=== PATIENT | female | born 1960 | race Caucasian/White ===

== ENCOUNTER 2023-12-22 07:00 | Emergency (ER) | payer MEDICARE, OTHER, SELFPAY ==
[2023-12-22 07:02] VITALS: BP 159/90
--- NOTE | 2023-12-22 07:24 | ED.GENMED ---
History of Present Illness
General
Chief Complaint: Back Pain
Source: patient
Exam Limitations: none
Time Seen by Provider: 12/22/23 07:12
History of Present Illness
History of Present Illness:
63-year-old female presents complaining of intermittent sharp stabbing pain to the left side of the lower back starting 2 days ago got better yesterday came back today. No associated nausea. Pain does not radiate down the leg or to the abdomen.
She is moving her bowels no associated urinary symptoms. No chest pain or shortness of breath. No prior history of kidney stones. She has significant surgical history to her back. She is a hic-zggjwbs-tixzdnset diabetic. No other
Phy Exam
Physical Exam
Physical Exam:
General: Uncomfortable appearing female no acute respiratory distress HEENT: Normocephalic atraumatic
Heart: Regular rate and rhythm no murmurs lungs: Clear no wheeze or rales
Abdomen: Soft nontender nondistended there is left-sided costovertebral angle tenderness
Musculoskeletal exam: No midline tenderness over the lumbar spine good range of motion all extremities
Course
Orders/Labs/Results
Orders:
Orders
12/22/23 07:23
CT Abd/pel Without Iv Or Oral Urgent
Comment:
Reason For Exam: left flank pain
Ketorolac [Toradol] 15 mg IV NOW STA
12/22/23 07:32
Complete Blood Count/With Diff Urgent
Urinalysis Reflex To Culture Urgent
Date Specimen was Collected: 12/22/23
Time Specimen was Collected: 07:26
Urine Microscopic Reflex Cult Urgent
12/22/23 08:02
Comprehensive Metabolic Panel Urgent
Abnormal Lab Results
12/22/23 12/22/23
07:32 08:02
Absolute Neuts (auto) 7.4 H 10^3/uL
(1.4-6.5)
Glucose 147 H mg/dl
(70-99)
Total Protein 6.2 L g/dl
(6.3-8.2)
Ur Occult Blood Reflex 4+ A
(Negative)
Urine RBC >100 A /HPF
(0-2)
Urine Bacteria (Reflex) Few A
(Negative)
12/22/23 07:32
12/22/23 08:02
Vital Signs
Initial and Last Documented VS:
Initial Vital Signs
Temp Pulse Resp BP Pulse Ox
99.1 F 99 16 159/90 98
12/22/23 07:02 12/22/23 07:02 12/22/23 07:02 12/22/23 07:02 12/22/23 07:02
Last Documented Vital Signs
Temp Pulse Resp BP Pulse Ox
99.1 F 88 17 149/62 98
12/22/23 07:02 12/22/23 08:00 12/22/23 08:00 12/22/23 08:00 12/22/23 08:00
MDM/Problems Addressed
Differential Diagnosis Includes:
Left flank pain. Consider renal colic versus musculoskeletal flank pain. There is no rash to suggest shingles.
Patient has jav-zbfmrxo-vphkfjmey diabetes. She has history of chronic back issues. Will check labs and urine. Toradol ordered for pain. CT pending
*Critical Care Note
Total Time (30-74mins, 75-104mins- exclusive of procedures): Not Applicable
Update Note
Update Note:
CT reviewed and demonstrates a 3 mm stone in the proximal left ureter with mild hydronephrosis. No infection in the urine on urinalysis labs otherwise within normal limits. Patient feeling significantly improved after Toradol. Will discharge home
with instruction to drink plenty of fluids. Will prescribe medicine for pain nausea and Flomax. Recommend urology follow-up and return precautions were given
ED Attending Note
-
Portions of this chart may have been created with voice recognition software.� Occasional wrong word or��sound alike� substitutions may have occurred due to the inherent limitations of voice recognition software.
Discharge Plan
Departure
Patient Disposition: Home (Routine Discharge)
Date of Disposition: 12/22/23
Time of Disposition: 09:06
Patient with high blood pressure during this ER visit?: No
Discharge Problem:
Kidney stone
Instructions: Kidney Stone, Adult ED
Prescriptions:
New
ondansetron 4 mg tablet,disintegrating
4 mg PO Q8H PRN (Reason: nausea and vomiting) Qty: 10 0RF
hydrocodone-acetaminophen 5-325 mg tablet
1 tab PO TID PRN (Reason: Pain) Qty: 10 0RF
tamsulosin [Flomax] 0.4 mg capsule
0.4 mg PO DAILY Qty: 14 0RF
Referrals:
Paradise Jefferson DO [Family Provider] -
Marck Christine MD [Active] -
Interventions
Interventions:
*Risk Screen - Suicide Last Done: 12/22/23 07:35
*General Assessment Last Done: 12/22/23 07:35
*Neglect/Abuse Screening Last Done: 12/22/23 07:35
*ED COVID-19 Vaccine History Last Done: 12/22/23 07:35
ED-Musculoskeletal Assessment Last Done: 12/22/23 07:35
Discharge Date and Time
Print Language: HAITIAN
[2023-12-22 07:31] VITALS: BMI 20.9
[2023-12-22] MEDS: TORADOL 15 MG IV (07:32)
[2023-12-22 07:41] LABS: % Basophils 0.4 % (0-2); % Eosinophils 1.2 % (0-6); % Immature Granulocytes 0.3 % (0-0.5); % Lymphocytes 20.8 % (20.5-51.1); % Monocytes 5.9 % (1.7-9.3); % Neutrophils 71.4 % (42.2-75.2); Absolute Eosinophils 0.1 10^3/uL (0-0.7); Absolute Lymphocytes 2.2 10^3/uL (1.2-3.4); Absolute Monocytes 0.6 10^3/uL (0.1-0.6); Absolute Neutrophils 7.4 10^3/uL (1.4-6.5); Hematocrit 41.8 % (37.0-47.0); Hemoglobin 14.4 g/dL (12.0-16.0); Mean Corp Hgb Conc. 34.4 g/dL (33.0-37.0); Mean Corpuscular Hgb 29.1 pg (27.0-31.0); Mean Corpuscular Volume 84.6 fL (81.0-99.0); Mean Platelet Volume 9.8 fL (7.4-10.4); Nucleated Red Blood Cells % 0 %; Platelet Count 246 10^3/uL (130-400); Red Blood Cell Count 4.94 10^6/uL (4.20-5.40); Red Cell Dist. Width 13.2 % (11.5-14.5); White Blood Cell Count 10.4 10^3/uL (4.8-10.8)
[2023-12-22 07:53] LABS: Urine Albumin Trace (Neg - Trace); Urine Bilirubin Negative (Negative); Urine Character Clear (Clear); Urine Color Yellow; Urine Glucose Negative (Negative); Urine Ketone Negative (Negative); Urine Leukocyte Negative (Negative); Urine Nitrite Negative (Negative); Urine Occult Blood 4+ (Negative); Urine Urobilinogen Negative (Neg - 1+)
[2023-12-22 08:00] VITALS: BP 149/62
[2023-12-22 08:08] LABS: Urine Bacteria Few (Negative); Urine Red Blood Cell >100 /HPF (0-2); Urine White Cell 0-2 /HPF (0-5)
[2023-12-22 08:34] LABS: ALT (SGPT) 29 U/L (0-35); AST (SGOT) 29 U/L (14-36); Alkaline Phosphatase 86 U/L (38-126); Blood Urea Nitrogen 16 mg/dl (7-17); Calcium 9.9 mg/dl (8.4-10.2); Carbon Dioxide 25 mmol/L (22-30); Chloride 105 mmol/L (98-107); Estimated Creatinine Clearance 81 ml/min; Glucose 147 mg/dl (70-99); Sodium 139 mmol/L (135-145); Total Bilirubin 0.3 mg/dl (0.2-1.3); Total Protein 6.2 g/dl (6.3-8.2); eGFR > 60.00
[2023-12-22 09:43] VITALS: BP 142/66
== END 2023-12-22 09:44 | disposition home or self-care (01) ==
LOC: EMR 07:00
PROVIDERS: Physician Assistant; EMERGENCY PHYSICIAN Emergency Medicine; FAMILY PHYSICIAN Internal Medicine
DX: N20.2 Calculus of kidney with calculus of ureter (principal); E11.9 Type 2 diabetes mellitus without complications
CPT/HCPCS: 99284; 96374; 74176; 80053; 81003; 81015; 85025

== ENCOUNTER → 2024-01-14 07:01 | Outpatient (REF) | payer MEDICARE, OTHER, SELFPAY | LOC: HWRAD 07:01 | PROVIDERS: ATTENDING PHYSICIAN Urology; FAMILY PHYSICIAN Internal Medicine | DX: N20.0 Calculus of kidney (principal) | CPT/HCPCS: 74018 ==

== ENCOUNTER 2024-01-30 06:21 | Day surgery (SDC) | payer MEDICARE, OTHER, SELFPAY ==
[2024-01-30] VITALS (10 sets, daily range): BP systolic 125–157; BP diastolic 65–84; BMI 20.4
[2024-01-30 12:37] LABS: Glucose - Point of Care 95 mg/dl (70-99)
[2024-01-30 14:29] LABS: Glucose - Point of Care 88 mg/dl (70-99)
[2024-01-30] MEDS: Pyridium 200 MG PO (17:13)
[2024-01-30] MEDS: TYLENOL 650 MG PO (18:22)
[2024-01-30] MEDS: ZOFRAN 4 MG IV (18:24)
[2024-02-04 11:28] LABS: Stone Analysis Mass 31 mg
== END 2024-01-30 18:34 | disposition home or self-care (01) ==
LOC: SDS 06:21
PROVIDERS: ATTENDING PHYSICIAN Urology
DX: N20.2 Calculus of kidney with calculus of ureter (principal)
CPT/HCPCS: 52356; 74018; 76000; 82365; 82962; 93005; A4300; C1758; C1769; C1894; C2617

== ENCOUNTER 2024-02-14 13:42 | Observation (INO) | payer MEDICARE, OTHER, SELFPAY ==
[2024-02-14] VITALS (12 sets, daily range): BP systolic 129–177; BP diastolic 67–98; PULSE 84
--- NOTE | 2024-02-14 08:17 | ED.GENMED ---
History of Present Illness
<Joana Prado MANAGER FRONT - Last Filed: 02/14/24 15:36>
General
Chief Complaint: Urinary Symptoms
Source: patient
Exam Limitations: none
Time Seen by Provider: 02/14/24 08:16
Nursing documentation reviewed up to this point in time: agreed with
History of Present Illness
History of Present Illness:
63-year-old female with history of sleep apnea on CPAP, HTN, HLD, GERD, NIDDM, anxiety, cystoscopy, right ureteroscopy, laser lithotripsy with stone extraction and right ureteral stent placed on 01/30/[address] Christine presents for rash,
nausea, poor appetite. States rash started 2 days ago on her back and has spread to shoulders, back of head, and today itching in chest, genital area and abdomen. Denies fever/chills. Has been nauseated and vomited once this a.m. Denies CP, SOB,
swelling in tongue or throat. Denies difficulty, burning, frequency of urination.
Took Benadryl 50 mg and Zofran at 5 a.m. with no relief.
Was on Macrobid BID 01/26 x 3 days. No other new exposures.
Past History
<Joana Prado MANAGER FRONT - Last Filed: 02/14/24 15:36>
Past History
ED Past Medical History: GERD, HTN, Hypercholesterolemia and NIDDM
ED Past Surgical History: Appendectomy, Cholecystectomy, Gynecological (hysterectomy), Orthopedic and Urological (stent R ureter 01/31/24)
Social History
Tobacco: Non-smoker
Personal:
Living: with family
Employment: Not employed
Review of Systems
<Joana Prado MANAGER FRONT - Last Filed: 02/14/24 15:36>
Review of Systems
Allergies reviewed?: Yes
All Other Systems: ROS reviewed and negative except as documented in HPI and ROS
Constitutional: Denies fever or chills
EENT: Denies sore throat or mouth swelling
Respiratory: Denies cough or trouble breathing
Cardiac: Denies chest pain
ABD/GI: Reports nausea, vomiting (vomited once this a.m.) and anorexia; Denies abdominal pain
: Denies dysuria, frequency, flank pain, difficulty voiding or urgency
Musculoskeletal: Reports no symptoms
Skin: Reports itching and rash
Neurological: Reports no symptoms
Phy Exam
<Joana Prado, MANAGER FRONT - Last Filed: 02/14/24 15:36>
Physical Exam
Physical Exam:
GENERAL: No acute distress. A&Ox3.
CONSTITUTIONAL: Afebrile.
EYES: clear, conjunctivae normal
ENMT: moist mucus membranes, Pharynx nl
RESPIRATORY: Regular respirations, nonlabored, lungs clear.
CARDIOVASCULAR: Regular rate and rhythm, no murmurs, no rubs.
GI: Soft, nontender, normal BS
MUSCULOSKELETAL: Moves with ease. Well perfused.
SKIN: Warm, dry, significant smooth red rash with satellite macular rash entire back, other lesser rash on back of neck, abdomen, chest.
PSYCH: Anxious mood and affect. Well kept, interactive and appropriate
NEUROLOGIC: Awake, alert and oriented. No focal neurological deficits
Course
<Joana Prado, MANAGER FRONT - Last Filed: 02/14/24 15:36>
Orders/Labs/Results
Orders:
Orders
02/14/24 08:29
Diphenhydramine [Benadryl] 25 mg IV NOW STA
EPINEPHrine PF [Adrenalin] 0.3 mg IM NOW STA
Famotidine [Pepcid] 20 mg IV NOW STA
02/14/24 08:30
0.9% Sodium Chloride 1000 ml [Nss] 1,000 ml IV BOLUS
Ondansetron Injectable [Zofran] 4 mg IV NOW STA
02/14/24 09:33
Prochlorperazine [Compazine] 10 mg .ROUTE .STK-MED ONE
Prochlorperazine [Compazine] 10 mg IV NOW STA
02/14/24 10:02
Urinalysis Reflex To Culture Urgent
Date Specimen was Collected: 02/14/24
Time Specimen was Collected: 09:56
Urine Microscopic Reflex Cult Urgent
Urine Culture Urgent
JAN Source: U
Specimen Description:
Date Specimen was Collected: 02/14/24
Time Specimen was Collected: 09:56
02/14/24 10:53
Tranexamic Acid 250 mg TOPICAL NOW STA
02/14/24 11:14
CefTRIAXone [Rocephin] 1,000 mg IV NOW STA
02/14/24 11:15
0.9% Sodium Chloride 1000 ml [Nss] 1,000 ml IV BOLUS
02/14/24 11:50
Complete Blood Count/With Diff Urgent
Comprehensive Metabolic Panel Urgent
Lactic Acid Q4H
Comment: CANCEL 2nd LACTIC ACID IF 1st LACTIC ACID IS LESS THAN 2
Blood Culture Urgent
JAN Source: Blood/Venous
Specimen Description:
Blood Culture Urgent
JAN Source: Blood/Venous
Specimen Description:
02/14/24 12:16
UROLOGY CONSULT Urgent
Consulting Provider: Michael Santiago
Was physician already notified: Yes
Comment: Complicated UTI, recent stent, Rash
02/14/24 13:21
Admit/Transfer Patient As Directed
Co-Sign Provider:
Level of Care: Observation services
Assign to:: Medical/Surgical
Physician / Group: jermaine morrissey
Diagnosis: mac rash likley contact derm, intrac nausea recent L stent ureter
02/14/24 13:25
Code Status As Directed
Resuscitation Status: Full Code
02/14/24 13:27
PRN Pain Medication Management As Directed
May give lesser potent ordered pain med per pt: Yes
preference::
Protocol:: Medication orders for pain may be administered in a
manner that supports deferring to patient preference
when the pt is:
- Requesting an ordered lesser potent pain medication.
Least to most potent pain medications are defined
as: acetaminophen < NSAID < tramadol < opioids
(morphine, oxycodone, hydromorphone).
- Requesting a lesser dose of the same medication IF
ORDERED.
- Requesting a less intrusive route of administration
if both routes are prescribed by the provider (PO <
IV).
02/14/24 13:28
Dextrose 50%-Water [Dextrose 50% Syringe] 12.5 grams IV [id number] PRN
Glucagon [GlucaGen] 1 mg IM PRN PRN
Bedside Glucose Monitoring As Directed
Frequency: AC&HS
Additional Instructions:: Change to q6h if pt on TPN, tube feeding or not eating
02/14/24 14:37
Acetaminophen [Tylenol] 650 mg PO Q4HPRN PRN
Bisacodyl [Dulcolax] 10 mg RECTAL [id number] PRN
Diphenhydramine [Benadryl] 50 mg PO Q6HPRN PRN
Ondansetron Injectable [Zofran] 4 mg IV Q6HPRN PRN
02/14/24 14:37
Activity As Directed
Activity Level: As Tolerated
Pneumatic Compression Sleeves As Directed
Type: Knee high
Vital Signs As Directed
Frequency: Per unit guidelines
DX Deep Vein Thrombosis Video Routine
02/14/24 Dinner
Regular
At Your Request: Full Participation
02/14/24 16:30
Insulin Aspart Corrective Low [Novolog Flexpen-Low Resistance] See Protocol SC AC
MethylPREDNISolone [Medrol] 24 mg PO ONCE ONE
02/15/24 06:33
Complete Blood Count/With Diff IN AM
Glycohemoglobin (HgbA1c) IN AM
02/15/24 08:00
Famotidine [Pepcid] 20 mg PO DAILY
MethylPREDNISolone [Medrol] 20 mg PO ONCE ONE
02/16/24 08:00
MethylPREDNISolone [Medrol] 16 mg PO ONCE ONE
02/17/24 08:00
MethylPREDNISolone [Medrol] 12 mg PO ONCE ONE
02/18/24 08:00
MethylPREDNISolone [Medrol] 8 mg PO ONCE ONE
02/19/24 08:00
MethylPREDNISolone [Medrol] 4 mg PO ONCE ONE
Abnormal Lab Results
02/14/24 02/14/24 02/14/24
10:02 11:42 11:50
MPV 10.7 H fL
(7.4-10.4)
Absolute Neuts (auto) 7.5 H 10^3/uL
(1.4-6.5)
Neutrophils % 77.2 H %
(42.2-75.2)
Lymphocytes % 14.2 L %
(20.5-51.1)
Chloride 108 H mmol/L
(98-107)
Glucose 122 H mg/dl
(70-99)
Total Protein 6.2 L g/dl
(6.3-8.2)
Ur Occult Blood Reflex 4+ A
(Negative)
Leukocyte Esterase Rfl 2+ A
(Negative)
Urine RBC 50-60 A /HPF
(0-2)
Urine WBC (Reflex) 26-30 A /HPF
(0-5)
Urine Bacteria (Reflex) Few A
(Negative)
Urine Albumin (Reflex) 2+ A
(Neg - Trace)
POC Glucose 117 H mg/dl
(70-99)
02/14/24 11:50
02/14/24 11:50
Vital Signs
Initial and Last Documented VS:
Initial Vital Signs
Temp Pulse Resp BP Pulse Ox
99.1 F 117 20 148/98 98
02/14/24 07:54 02/14/24 07:54 02/14/24 07:54 02/14/24 07:54 02/14/24 07:54
Last Documented Vital Signs
Temp Pulse Resp BP Pulse Ox
98 F 91 21 139/68 96
02/15/24 07:45 02/15/24 08:28 02/15/24 07:45 02/15/24 08:28 02/15/24 07:45
<Chan Dudley MD - Last Filed: 02/15/24 08:59>
Orders/Labs/Results
Orders:
Orders
02/14/24 08:29
Diphenhydramine [Benadryl] 25 mg IV NOW STA
EPINEPHrine PF [Adrenalin] 0.3 mg IM NOW STA
Famotidine [Pepcid] 20 mg IV NOW STA
02/14/24 08:30
0.9% Sodium Chloride 1000 ml [Nss] 1,000 ml IV BOLUS
Ondansetron Injectable [Zofran] 4 mg IV NOW STA
02/14/24 09:33
Prochlorperazine [Compazine] 10 mg .ROUTE .STK-MED ONE
Prochlorperazine [Compazine] 10 mg IV NOW STA
02/14/24 10:02
Urinalysis Reflex To Culture Urgent
Date Specimen was Collected: 02/14/24
Time Specimen was Collected: 09:56
Urine Microscopic Reflex Cult Urgent
Urine Culture Urgent
JAN Source: U
Specimen Description:
Date Specimen was Collected: 02/14/24
Time Specimen was Collected: 09:56
02/14/24 10:53
Tranexamic Acid 250 mg TOPICAL NOW STA
02/14/24 11:14
CefTRIAXone [Rocephin] 1,000 mg IV NOW STA
02/14/24 11:15
0.9% Sodium Chloride 1000 ml [Nss] 1,000 ml IV BOLUS
02/14/24 11:50
Complete Blood Count/With Diff Urgent
Comprehensive Metabolic Panel Urgent
Lactic Acid Q4H
Comment: CANCEL 2nd LACTIC ACID IF 1st LACTIC ACID IS LESS THAN 2
Blood Culture Urgent
JAN Source: Blood/Venous
Specimen Description:
Blood Culture Urgent
JAN Source: Blood/Venous
Specimen Description:
02/14/24 12:16
UROLOGY CONSULT Urgent
Consulting Provider: Michael Santiago
Was physician already notified: Yes
Comment: Complicated UTI, recent stent, Rash
02/14/24 13:21
Admit/Transfer Patient As Directed
Co-Sign Provider:
Level of Care: Observation services
Assign to:: Medical/Surgical
Physician / Group: jermaine morrissey
Diagnosis: mac rash likley contact derm, intrac nausea recent L stent ureter
02/14/24 13:25
Code Status As Directed
Resuscitation Status: Full Code
02/14/24 13:27
PRN Pain Medication Management As Directed
May give lesser potent ordered pain med per pt: Yes
preference::
Protocol:: Medication orders for pain may be administered in a
manner that supports deferring to patient preference
when the pt is:
- Requesting an ordered lesser potent pain medication.
Least to most potent pain medications are defined
as: acetaminophen < NSAID < tramadol < opioids
(morphine, oxycodone, hydromorphone).
- Requesting a lesser dose of the same medication IF
ORDERED.
- Requesting a less intrusive route of administration
if both routes are prescribed by the provider (PO <
IV).
02/14/24 13:28
Dextrose 50%-Water [Dextrose 50% Syringe] 12.5 grams IV [id number] PRN
Glucagon [GlucaGen] 1 mg IM PRN PRN
Bedside Glucose Monitoring As Directed
Frequency: AC&HS
Additional Instructions:: Change to q6h if pt on TPN, tube feeding or not eating
02/14/24 14:37
Acetaminophen [Tylenol] 650 mg PO Q4HPRN PRN
Bisacodyl [Dulcolax] 10 mg RECTAL [id number] PRN
Diphenhydramine [Benadryl] 50 mg PO Q6HPRN PRN
Ondansetron Injectable [Zofran] 4 mg IV Q6HPRN PRN
02/14/24 14:37
Activity As Directed
Activity Level: As Tolerated
Pneumatic Compression Sleeves As Directed
Type: Knee high
Vital Signs As Directed
Frequency: Per unit guidelines
DX Deep Vein Thrombosis Video Routine
02/14/24 Dinner
Regular
At Your Request: Full Participation
02/14/24 16:30
Insulin Aspart Corrective Low [Novolog Flexpen-Low Resistance] See Protocol SC AC
MethylPREDNISolone [Medrol] 24 mg PO ONCE ONE
02/15/24 06:33
Complete Blood Count/With Diff IN AM
Glycohemoglobin (HgbA1c) IN AM
02/15/24 08:00
Famotidine [Pepcid] 20 mg PO DAILY
MethylPREDNISolone [Medrol] 20 mg PO ONCE ONE
02/16/24 08:00
MethylPREDNISolone [Medrol] 16 mg PO ONCE ONE
02/17/24 08:00
MethylPREDNISolone [Medrol] 12 mg PO ONCE ONE
02/18/24 08:00
MethylPREDNISolone [Medrol] 8 mg PO ONCE ONE
02/19/24 08:00
MethylPREDNISolone [Medrol] 4 mg PO ONCE ONE
Abnormal Lab Results
02/14/24 02/14/24 02/14/24
10:02 11:42 11:50
MPV 10.7 H fL
(7.4-10.4)
Absolute Neuts (auto) 7.5 H 10^3/uL
(1.4-6.5)
Neutrophils % 77.2 H %
(42.2-75.2)
Lymphocytes % 14.2 L %
(20.5-51.1)
Chloride 108 H mmol/L
(98-107)
Glucose 122 H mg/dl
(70-99)
Total Protein 6.2 L g/dl
(6.3-8.2)
Ur Occult Blood Reflex 4+ A
(Negative)
Leukocyte Esterase Rfl 2+ A
(Negative)
Urine RBC 50-60 A /HPF
(0-2)
Urine WBC (Reflex) 26-30 A /HPF
(0-5)
Urine Bacteria (Reflex) Few A
(Negative)
Urine Albumin (Reflex) 2+ A
(Neg - Trace)
POC Glucose 117 H mg/dl
(70-99)
02/14/24 11:50
02/14/24 11:50
Vital Signs
Initial and Last Documented VS:
Initial Vital Signs
Temp Pulse Resp BP Pulse Ox
99.1 F 117 20 148/98 98
02/14/24 07:54 02/14/24 07:54 02/14/24 07:54 02/14/24 07:54 02/14/24 07:54
Last Documented Vital Signs
Temp Pulse Resp BP Pulse Ox
98 F 91 21 139/68 96
02/15/24 07:45 02/15/24 08:28 02/15/24 07:45 02/15/24 08:28 02/15/24 07:45
<Joana Prado, MANAGER FRONT - Last Filed: 02/14/24 15:36>
MDM/Problems Addressed
Differential Diagnosis Includes:
medication side effect, allergic reaction
MDM/Problems Addressed:
63-year-old female with history of sleep apnea on CPAP, HTN, HLD, GERD, NIDDM, anxiety, cystoscopy, right ureteroscopy, laser lithotripsy with stone extraction and right ureteral stent placed on 01/30/[address] Christine presents for rash,
nausea, poor appetite. States rash started 2 days ago on her back and has spread to shoulders, back of head, and today itching in chest, genital area and abdomen. Denies fever/chills. Has been nauseated and vomited once this a.m. Denies CP, SOB,
swelling in tongue or throat. Denies difficulty, burning, frequency of urination.
Took Benadryl 50 mg and Zofran at 5 a.m. with no relief.
Was on Macrobid BID 01/26 x 3 days. No other new exposures.
Consulted Urologist Dr. Santiago who recommends urine culture. States the stent could irritate the kidney and cause nausea. Does not feel this is stent related.
Pt requesting Compazine for nausea, Zofran hasn't helped.
10:45 AM:
In to reevaluate patient. She states the Compazine helped a little and she states she feels like 'it's the stent' that is causing her to feel nauseous and 'I just don't feel right.'
Her BP is in the 100s to 120 (she did receive epinephrine)
Her rash seems to be improving
She still feels nauseous and states Compazine helped a little but she still. Concern for infection, may need stent removal.
Blood work pending
U/A: +4 occult blood 2+ Leukocytes, 50-60 RBC, 26-30 WBC, few squamous and bacterial cells.
Case discussed with Dr. Dudley who examined pt.
CBC: with no clinically significant abnormality
12:00 p.m.
Plan: Admit: Complicated UTI, rash, dehydration
Hospitalist and Dr. Santiago notified.
CMP:pending
Lactic: pending
Blood and urine cultures pending
<Joana Prado MANAGER FRONT - Last Filed: 02/14/24 15:36>
*Critical Care Note
Total Time (30-74mins, 75-104mins- exclusive of procedures): Not Applicable
ED Attending Note
<Joana Prado MANAGER FRONT - Last Filed: 02/14/24 15:36>
-
Portions of this chart may have been created with voice recognition software.� Occasional wrong word or��sound alike� substitutions may have occurred due to the inherent limitations of voice recognition software.
<Chan Dudley MD - Last Filed: 02/15/24 08:59>
ED Attending Note
Patient seen and examined by attending physician: Yes
ED Attending Note:
History and exam concerning for sig dehydration for ongoing complications from recently identified kidney stone and subsequent stent placement. US noted - though may be contaminated, given duration and stent placement and presenting symptoms, will
start empiric abx, with urine culture pending. Will admit for further evaluation and treatment. Oncall urology, , notified.
Discharge Plan
Departure
Patient Disposition: Admit
Date of Disposition: 02/14/24
Time of Disposition: 11:19
Admit to: Med/Surg
Presentation/result/management discussed w/ accepting MD/DO: Hospitalist
Condition: Fair
Discharge Problem:
Complicated urinary tract infection, Rash, Acute dehydration
Interventions
Interventions:
*Risk Screen - Suicide Last Done: 02/14/24 07:53
*General Assessment Last Done: 02/14/24 07:54
*Neglect/Abuse Screening Last Done: 02/14/24 07:54
ED- Fall Risk Assessment Last Done: 02/14/24 08:14
*ED COVID-19 Vaccine History Last Done: 02/14/24 08:06
*Nursing Disposition Last Done: 02/14/24 14:17
ED-Female Genitourinary Assessment Last Done: 02/14/24 08:14
Discharge Date and Time
Discharge Date/Time: 02/14/24 14:24
[2024-02-14] MEDS: NSS 1000 IV (08:35)
[2024-02-14] MEDS: ZOFRAN 4 MG IV ×2 (08:36→15:47)
[2024-02-14] MEDS: ADRENALIN 0.3 MG IM (08:36)
[2024-02-14] MEDS: PEPCID 20 MG IV (08:36)
[2024-02-14] MEDS: BENADRYL 25 MG IV (08:36)
[2024-02-14] MEDS: COMPAZINE 10 MG IV (09:34)
[2024-02-14 10:44] LABS: Urine Albumin 2+ (Neg - Trace); Urine Bilirubin Negative (Negative); Urine Character Slightly Cloudy (Clear); Urine Glucose Negative (Negative); Urine Ketone Negative (Negative); Urine Leukocyte 2+ (Negative); Urine Nitrite Negative (Negative); Urine Occult Blood 4+ (Negative); Urine Urobilinogen Negative (Neg - 1+); Urine pH 6.5 (5.0-9.0)
[2024-02-14 10:47] LABS: Urine Color Pink
[2024-02-14 11:01] LABS: Urine Bacteria Few (Negative); Urine Squamous Cell 16-20 /LPF (Few)
[2024-02-14 11:02] LABS: Urine Red Blood Cell 50-60 /HPF (0-2); Urine White Cell 26-30 /HPF (0-5)
[2024-02-14 11:44] LABS: Glucose - Point of Care 117 mg/dl (70-99)
[2024-02-14 12:05] LABS: % Basophils 0.3 % (0-2); % Eosinophils 1.6 % (0-6); % Immature Granulocytes 0.4 % (0-0.5); % Lymphocytes 14.2 % (20.5-51.1); % Monocytes 6.3 % (1.7-9.3); % Neutrophils 77.2 % (42.2-75.2); Absolute Eosinophils 0.2 10^3/uL (0-0.7); Absolute Lymphocytes 1.4 10^3/uL (1.2-3.4); Absolute Monocytes 0.6 10^3/uL (0.1-0.6); Absolute Neutrophils 7.5 10^3/uL (1.4-6.5); Hematocrit 42.2 % (37.0-47.0); Hemoglobin 14.3 g/dL (12.0-16.0); Mean Corp Hgb Conc. 33.9 g/dL (33.0-37.0); Mean Corpuscular Hgb 29.7 pg (27.0-31.0); Mean Corpuscular Volume 87.7 fL (81.0-99.0); Mean Platelet Volume 10.7 fL (7.4-10.4); Nucleated Red Blood Cells % 0 %; Platelet Count 245 10^3/uL (130-400); Red Blood Cell Count 4.81 10^6/uL (4.20-5.40); Red Cell Dist. Width 12.4 % (11.5-14.5); White Blood Cell Count 9.8 10^3/uL (4.8-10.8)
[2024-02-14 12:20] LABS: Lactic Acid 0.7 mmol/L (0.7-2.0)
[2024-02-14 12:21] LABS: ALT (SGPT) 22 U/L (0-35); AST (SGOT) 25 U/L (14-36); Alkaline Phosphatase 102 U/L (38-126); Blood Urea Nitrogen 9 mg/dl (7-17); Calcium 9.1 mg/dl (8.4-10.2); Carbon Dioxide 23 mmol/L (22-30); Chloride 108 mmol/L (98-107); Glucose 122 mg/dl (70-99); Potassium 3.8 mmol/L (3.5-5.1); Sodium 141 mmol/L (135-145); Total Bilirubin 0.3 mg/dl (0.2-1.3); Total Protein 6.2 g/dl (6.3-8.2); eGFR > 60.00
--- NOTE | 2024-02-14 12:29 | HPS.HSE ---
Family Physician
<TESSA Osborne - Last Filed: 02/14/24 14:18>
-
Family Physician: [facility] Jefferson
Chief Complaint
<TESSA Osborne - Last Filed: 02/14/24 14:18>
-
Macular rash shoulders, chest, arms, back pruritic
History of Present Illness
63-year-old female complaining of macular pruritic rash to her back, shoulders back of head then with pruritus to chest, genital area and abdomen started 2 days ago. She reports using honest lavender lotion on Saturday to her neck, face, arms, upper
chest then developed a rash the following day. She also complains of some nausea with vomiting once this a.m. she is status post left ureteroscopy, cystoscopy, laser lithotripsy with stone extraction and left ureteral stent placement on 01/30/[address] Christine. She was on Macrobid twice daily from 01/30 - 02/02/2024 she denies any other medications, new detergents. She denies fever, chills, chest pain, palpitations, shortness of, cough, abdominal pain, diarrhea. She is past medical history
of DM2, HTN, HLD, GERD, CPAP, anxiety
Medical History
<TESSA Osborne - Last Filed: 02/14/24 14:18>
Past Medical History
Past Medical History: Reports Other
Additional Past Medical History:
DM2
HTN
HLD
GERD
CPAP
anxiety
Renal calculi
Past Surgical History: Reports Other
Additional Past Surgical History:
Status post cystoscopy right ureteroscopy/right renal stone laser lithotripsy with right ureteral stent placement 01/30/2024
Appendectomy 1988
Hysterectomy 1997
Sinus surgery 2000
Cholecystectomy 2008
Shoulder arthroscopy 2012
Back stimulator 2013
Discectomy 2020
Social History
Personal:
Living: With Family
Family History
Family History: Other (Mother lung CVA age 52 smoker, 1 sister age 52 lung CA smoker 1 brother age 62 lung CA smoker, father staph infection age 72 history of HTN/CAD/TX, 1 sister 1 brother living healthy)
Allergies / Home Medications
Allergies reflects when Allergies were last updated in [facility].
Home Medications with original date entered in [facility]
Allergy/Medication List:
Allergies
Allergy/AdvReac Type Severity Reaction Status Date / Time
amoxicillin Allergy Rash Verified 02/14/24 07:59
hydromorphone [From Dilaudid] Allergy Itching Verified 02/14/24 07:59
meperidine [From Demerol] Allergy Rash Verified 02/14/24 07:59
morphine Allergy Itching Verified 02/14/24 07:59
Home Medications
lisinopril 2.5 mg tablet 2.5 mg PO DAILY 01/23/24
metformin 500 mg tablet 500 mg PO BID 01/23/24
montelukast 10 mg tablet (Singulair) 10 mg PO DAILY 01/23/24
pravastatin 40 mg tablet 40 mg PO MOWEFR 01/23/24
trazodone 50 mg tablet 50 mg PO HS 01/23/24
calcium carbonate 600 mg-vitamin D3 5 mcg (200 unit) tablet 1 tab PO DAILY 02/14/24
coenzyme Q10 100 mg capsule (CoQ-10) 100 mg PO DAILY 02/14/24
ondansetron HCl 4 mg tablet 4 mg PO Q8HPRN PRN nausea 02/14/24
phenazopyridine 200 mg tablet 200 mg PO TIDPRN PRN painful urination 02/14/24
<Enmanuel Silver MD - Last Filed: 02/14/24 14:04>
Social History
Tobacco: Non-smoker
Alcohol: None
Drug: None
Review of Systems
<TESSA Osborne - Last Filed: 02/14/24 14:18>
-
History Source: Patient and Family ()
A 12 point ROS was completed and negative except as noted: Yes
Constitutional: Denies Fever or Chills
EENT: Reports Other (No oral swelling, no facial swelling, speech clear); Denies Tearing, Sore Throat, Mouth Pain or Mouth Swelling
Respiratory: Denies Cough or Trouble Breathing
Cardiac: Denies Chest Pain, Diaphoresis or Palpitations
Abdomen/GI: Denies Abdominal Pain, Nausea, Vomiting, Diarrhea, Bloody Stools or Black Stools
: Denies Dysuria, Frequency, Flank Pain, Incontinence or Difficulty Voiding
Musculoskeletal: Denies Joint Pain or Edema
Skin: Reports Itching and Rash (Neck, shoulders, upper chest, back, forearms macular)
Neurological: Denies Dizzy or Headache
Endocrine: Reports No Symptoms
Hematologic/Lymphatic: Reports No Symptoms
Psych: Reports Calm
Physical Exam
<TESSA Osborne - Last Filed: 02/14/24 14:18>
Vital Signs
Vital Signs
Temp Pulse Resp BP Pulse Ox
99.1 F 103 17 177/78 96
02/14/24 07:54 02/14/24 12:15 02/14/24 08:13 02/14/24 12:00 02/14/24 12:15
Physical Exam
General: Comfortable, Conversant and Other (Poor historian); No Pain, Fever or Chills
HEENT: NormoCephalic, Anicteric, Moist mucous membranes, PERRLA, [place] Conjunctivae, No Ptosis and Other (No swelling appreciated to face, lips. Voice is clear able to swallow own secretions); No Pharyngeal Erythema or Nodules
Respiratory: Clear; No Wheezes, Rales or Rhonchi
Cardiac: S1/S2 and Regular Rhythm; No Murmur, Rub or Gallop
Breast: Deferred by me
GI: Soft, Non Tender, Non Distended, Normal Bowel Sounds and No Hepatosplenomegaly
Rectal: Deferred by Provider
Genito-urinary: Deferred by me
Musculoskeletal: No Clubbing, No Cyanosis and No Edema
Skin: Warm and Dry; No Rash (Neck, shoulders, upper chest, back, forearms macular) or Jaundice
Neuro: AO x 3 (Very poor historian), No Motor Deficits, Nonfocal/grossly intact, Cranial Nerves Intact, No Sensory Deficits, DTR's Intact & Symmetrical and Tremors; No Slurred Speech or Facial Droop
Psych: Calm
Laboratory Results
<TESSA Osborne - Last Filed: 02/14/24 14:18>
-
02/14/24 11:50
02/14/24 11:50
Laboratory Results
Lactic Acid 0.7 mmol/L (0.7-2.0) 02/14/24 11:50
Total Bilirubin 0.3 mg/dl (0.2-1.3) 02/14/24 11:50
AST 25 U/L (14-36) 02/14/24 11:50
ALT 22 U/L (0-35) 02/14/24 11:50
Alkaline Phosphatase 102 U/L (38-126) 02/14/24 11:50
Impression/Plan
<TESSA Osborne - Last Filed: 02/14/24 14:18>
-
Impression/plan:
OBS MedSurg
#Rash back/ shoulders/head with pruritus chest , Abdomen likely 2/2 new lotion HONEST
Patient reports applied honest [employer] lavender lotion to neck, upper body, arms on 02/11/2024 developed rash 02/16/2024
-Patient took Benadryl 50 mg in a.m.
pt was given Pepcid 20 mg in ER, Compazine, epinephrine 0.3 mg IM in ER
-Will start Medrol dose pack
-Continue Pepcid 20 mg daily, Singulair 10 mg daily, Benadryl as needed itching
-Consult Infectious disease
#Intractable nausea Status post cystoscopy LEFt ureteroscopy/LEFT renal stone laser lithotripsy with LEFT ureteral stent placement 01/30/2024
Patient seen in ER for left 3 mm renal calculi 12/22/2023
-Consult urology Dr. Santiago aware
-Macrobid 01/30 - 02/02/2024
-Continue Flomax
-As needed Zofran
- dr santiago will follow blood cultures in consideration for early stent removal
#DM 2
Accu-Cheks with SSI low
-Hold metformin
#Chronic back and leg pain
#History of back stimulator 2013, discectomy 2020
#Hx palpitations
#HTN-�benign
BP 177/78
-Continue lisinopril 2.5 mg daily
# HLD
-Continue pravastatin 40 mg Saturday
#GERD
-Patient takes as needed Pepcid 20 mg daily
#Sleep apnea/CPAP
Uses nasal CPAP setting 4-5
#Anxiety hx
Trazodone 50 mg at bedtime
DVT prophylaxis
SCD
Full code
--- NOTE | 2024-02-14 13:26 | W.PN.UPDATE ---
Addendum entered and electronically signed by Enmanuel Silver MD 02/14/24 14:03:
Urologist consulted :
As Per Dr Santiago
- If she�s still lingering, I�ll consider taking the stent out after blood cultures.
- The urinalysis reflects the stent, not a UTI
Original Note:
Update Note
Progress Note Update
This note serves as an addendum to the H&P by hand or machine paster CONSTANCE Karla BROWERURGIS
HPI
63F Diabetic HTN, HLD, GERD, CITLALLI on nasal CPAP pw significant non spreading pruritic rash, mainly on back, chest, genital area and abdomen started 2 days ago followinf topical application of HONEST LAVENDER lotion.
- associated some nausea with vomiting once this a.m.
- nausea, poor appetite
Recent HX cystoscopy, right ureteroscopy, laser lithotripsy with stone extraction and right ureteral stent placed on 01/30/2024. S/P last dose of Macrobid 02/02/24 total pr patient ??
PHX
ABOVE
Reviewed VS: T 99.1, HR 103 177/78
PE
Gen: Not toXic
HEENT: anicteric, normal tongue and lips
Neck: supple
Lungs: CTA
Cor: RRR S1 S2
Abdomen: soft benign abdomen
SALES REPRESENTATIVE SALES MANAGER: AAO3, NFND
MS: noedema
Derm:
warm, dry, significant smooth red MACULOPAPULAR rash with satellite macular rash entire back, other lesser rash on back of neck, abdomen, chest.
Psych: appropriate
Data
01/30/24 AXR: Left ureteral stent placement.
12/22/23 CT Abd/pel Without Iv Or Oral
Small nonobstructing left renal calculus.
Approximate 0.3 cm calculus in the proximal left ureter with mild left renal collecting system dilatation.
Last hospitalist admission: to Urology service
DATE OF OPERATION: 01/30/2024
PREOPERATIVE DIAGNOSIS: Right ureteral stone, right renal stone.
POSTOPERATIVE DIAGNOSIS: Right renal stone.
PROCEDURE PERFORMED: Cystoscopy, right ureteroscopy, laser lithotripsy, stone extraction, right ureteral stent placement.
ASSESSMENT & PLAN
significant non spreading acute pruritic maculopapular rash mainly on back, chest, genital area and abdomen s/p topical application of HONEST LAVENDER lotion. DDX : local dermatitis
- Hemodynamically stable
- No clinical evidence angioedema of OM, tongue and lips
- Denied SoB, Domo, wheeze and swollen tongue
- s/p Epi IM & IV CFTX ER
- Empiric Medrol dose pack
- add ISS low
- hold off further ABx
- ID consult
DMT2
- cont metformin
- add ISS low
Essential HTN
Hi BP - missed AM Meds
- cont Lisinopril
HLD
- cont Prvastatin
Right renal stone. s/p cystoscopy, right ureteroscopy, laser lithotripsy, stone extraction, right ureteral stent placement.
Discrepancy in AXR and uro op report
- patent re[ports that stent was at Lt ureter - 01/30/24 AXR: Left ureteral stent placement.
- Uro consult
- To clarify of stent site and Op reports for site of procedure ?
DVT Px: SCD
Code: Full
Obs MS
[2024-02-14] MEDS: ZESTRIL 2.5 MG PO (15:48)
--- NOTE | 2024-02-14 16:47 | CON.ID ---
Consultation
-
Date/Time Consultation Requested: 02/14/24 14:22
Date/Time Consultation Performed: 02/14/24 16:49
Requesting Provider: Dr Silver
Performing Provider: Dr Arroyo
Reason for Consultation: rash
Chief Complaint / Past History
Chief Complaint
Macular rash shoulders, chest, arms, back pruritic
History of Present Illness
Ms Perez is a 63 year old female presenting for pruritic (not painful), coalescing, macular rash on the trunk and extremities which began two days prior to arrival. NO genital or oral involvement - she is surprised when I ask. Mild nausea
with single episode of vomiting . Of note 01/29 she underwent left ureteroscopy, cystoscopy, laser lithotripsy with stone extraction and left ureteral stent placement and was treated with Macrobid twice daily from 01/30 - 02/02/2024. No other new
medications over the counter medications, herbs or supplements. She did use a new lotion (honest brand) three days prior to arrival. No respiratory symptoms - cough, sputum production sore throat.
Since arrival here she has been afebrile, bp stable, wbc 9.8, hgb 14.3, plt 245, cr 0.6, t bili 0.3, ast 5, alt 22, alk pohs 102, ua 26-30, blood cultures x2 were sent, urine culture also in progress, she is on benadryl, famtoidine and
methylprednisolone. ID is consulted for assistance with management.
Past History
Additional Past Medical History:
DM2
HTN
HLD
GERD
CPAP
anxiety
Renal calculi
Additional Past Surgical History:
right ureteroscopy/right renal stone laser lithotripsy with right ureteral stent placement 01/30/2024
Appendectomy 1987
Hysterectomy 1997
Sinus surgery 2000
Cholecystectomy 2008
Shoulder arthroscopy 2012
Back stimulator 2013
Discectomy 2020
Allergy History:
amoxicillin Allergy (Verified 02/14/24 07:59)
Rash
hydromorphone [From Dilaudid] Allergy (Verified 02/14/24 07:59)
Itching
meperidine [From Demerol] Allergy (Verified 02/14/24 07:59)
Rash
morphine Allergy (Verified 02/14/24 07:59)
Itching
Medications Reviewed: Yes
Social History
Tobacco: Non-Smoker
Personal:
Living: With Family
Family History
Family History: Not Pertinent
Review of Systems
Review of Systems
General: Negative Fever or Chills
All systems: All other systems were reviewed and were negative
Vital Signs
Temp Pulse Resp BP Pulse Ox
98.1 F 99 16 151/82 98
02/14/24 14:59 02/14/24 14:59 02/14/24 14:59 02/14/24 14:59 02/14/24 14:59
Physical Exam
Physical Exam
Constitutional: No Acute Distress
Cardiovascular: Regular Rate and S1/S2; Negative Murmur or Rub
Pulmonary: Clear and Symmetric; Negative Wheezes, Rales or Rhonchi
Gastrointestinal: Soft, Non Tender, Non Distended and Normal Bowel Sounds
Skin: Warm, Dry and Rash (coalescing, macular rash, blanching; no oral or genital involvement); Negative Jaundice
Lab / Diagnostic Study Results
02/14/24 11:50
02/14/24 11:50
Abs Immat Gran (auto) 0.0 10^3/uL (0-0.05) 02/14/24 11:50
Absolute Neuts (auto) 7.5 10^3/uL (1.4-6.5) H 02/14/24 11:50
Absolute Lymphs (auto) 1.4 10^3/uL (1.2-3.4) 02/14/24 11:50
Absolute Monos (auto) 0.6 10^3/uL (0.1-0.6) 02/14/24 11:50
Absolute Basos (auto) 0.0 10^3/uL (0-0.2) 02/14/24 11:50
Immature Gran % 0.4 % (0-0.5) 02/14/24 11:50
Neutrophils % 77.2 % (42.2-75.2) H 02/14/24 11:50
Lymphocytes % 14.2 % (20.5-51.1) L 02/14/24 11:50
Monocytes % 6.3 % (1.7-9.3) 02/14/24 11:50
Eosinophils % 1.6 % (0-6) 02/14/24 11:50
Basophils % 0.3 % (0-2) 02/14/24 11:50
Lactic Acid Cancelled 02/14/24 15:15
Ur Squamous Epith Cells 16-20 /LPF (Few) 02/14/24 10:02
Microbiology Results
Micro:
02/14/24 11:50 Blood Culture - Pending
Blood/Venous
02/14/24 11:50 Blood Culture - Pending
Blood/Venous
02/14/24 10:02 Urine Culture - Pending
Urine
Assessment / Plan
Possible Drug Rash
- no mucosal involvement
- agree with steroids, famotidine, benadryl
- if improved overnight may consider discharge in the AM
--- NOTE | 2024-02-14 17:07 | W.PN.URO.CBU ---
Today's Communication / Plan
-
await cxs no procedure plan at this time if cxs eare neg prefer tpo d/c and perfon stent emoval as otpatient
Assessment / Plan
-
pt non toxic no fevrchils nl labs u.a reflects stent await blood cxs to r/out sepsi but most liely stent intolerance if stable and cxs neg would suggest d/c for outpatient stent removal
Diagnosis
-
Date of Service: February 14, 2024
-
Patient Diagnosis:s/p laser of renal stone withstentin now with myrais complaints including nausea rasj-=h but no fevr chills
Post Op Day:
Subjective
-
nausea does not fel rigt
Objective
-
Vital Signs
Temp Pulse Resp BP Pulse Ox
98.1 F 99 16 151/82 98
02/14/24 14:59 02/14/24 14:59 02/14/24 14:59 02/14/24 14:59 02/14/24 14:59
Laboratory Results
02/14/24 11:50
02/14/24 11:50
Review of Systems
-
Abdomen/GI: Nausea
: Frequency
Skin: Itching and Rash
Physical Exam
-
General - well developed, well nourished, no acute distress
Chest - clear bilaterally
Abdomen - soft, non-tender, positive bowel sounds, no CVAT, no incisional pain or distention
Genitalia - normal
Rectal - normal
Skin - warm & dry with no rashrsah cg=hest back
Neuro - AOx3, no motor deficits
Extremities - no clubbing, no cyanosis, no edema
Incision - clean, dry
Dressing - clean, dry, intact
Care Review
Data Reviewed
Discussed with: Hospitalist, Nursing and Family
CT Scan: Image Pers Reviewed
[2024-02-14 17:12] LABS: Glucose - Point of Care 138 mg/dl (70-99)
[2024-02-14] MEDS: MEDROL 24 MG PO (17:15)
[2024-02-14] MEDS: NOVOLOG FLEXPEN-LOW RESISTANCE SC (17:15)
[2024-02-14] MEDS: PRAVACHOL 40 MG PO (17:18)
[2024-02-14 18:04] LABS: COVID-19 Antigen Negative (Negative)
[2024-02-14 21:12] LABS: Glucose - Point of Care 148 mg/dl (70-99)
[2024-02-14] MEDS: DESYREL 50 MG PO (21:56)
[2024-02-15] MEDS: ZOFRAN 4 MG IV ×2 (04:04→11:48)
[2024-02-15 07:45] VITALS: BP 139/68
[2024-02-15 08:04] LABS: Glucose - Point of Care 175 mg/dl (70-99)
[2024-02-15] MEDS: NOVOLOG FLEXPEN-LOW RESISTANCE 1 UNITS SC ×2 (08:28→17:24)
[2024-02-15] MEDS: ZESTRIL 2.5 MG PO (08:28)
[2024-02-15] MEDS: PEPCID 20 MG PO ×2 (08:30→19:57)
[2024-02-15 08:32] LABS: % Basophils 0.2 % (0-2); % Immature Granulocytes 0.3 % (0-0.5); % Lymphocytes 11.9 % (20.5-51.1); % Neutrophils 82.6 % (42.2-75.2); Absolute Lymphocytes 0.8 10^3/uL (1.2-3.4); Absolute Monocytes 0.3 10^3/uL (0.1-0.6); Absolute Neutrophils 5.4 10^3/uL (1.4-6.5); Hematocrit 38.5 % (37.0-47.0); Mean Corp Hgb Conc. 33.8 g/dL (33.0-37.0); Mean Corpuscular Hgb 28.7 pg (27.0-31.0); Mean Platelet Volume 9.8 fL (7.4-10.4); Nucleated Red Blood Cells % 0 %; Platelet Count 238 10^3/uL (130-400); Red Blood Cell Count 4.53 10^6/uL (4.20-5.40); Red Cell Dist. Width 12.3 % (11.5-14.5); White Blood Cell Count 6.6 10^3/uL (4.8-10.8)
[2024-02-15] MEDS: SINGULAIR 10 MG PO (08:32)
[2024-02-15] MEDS: MEDROL 20 MG PO (09:36)
--- NOTE | 2024-02-15 11:07 | W.PN.URO.CBU ---
Today's Communication / Plan
-
to op room sun npo after hs tonight
Assessment / Plan
-
pt non toxic no fevrchils but pos urine cx will give iv ab today rhen rmove stent am sun
Diagnosis
-
Date of Service: February 15, 2024
-
Patient Diagnosis:
Post Op Day:
Patient Diagnosis:s/p laser of renal stone withstentin now with myrais complaints including nausea rasj-=h but no fevr chills
Post Op Day:
Subjective
-
still feling poor;y
Objective
-
Vital Signs
Temp Pulse Resp BP Pulse Ox
98 F 91 21 139/68 96
02/15/24 07:45 02/15/24 08:28 02/15/24 07:45 02/15/24 08:28 02/15/24 08:00
Intake and Output
02/14/24 02/15/24 02/16/24
06:59 06:59 06:59
Intake Total 480 / 480
Balance 480 / 480
Intake:
Oral fluids 480 / 480
Other:
Number of approximated MODERATE 2
amounts of urine
Laboratory Results
02/15/24 06:33
02/14/24 11:50
Review of Systems
-
Abdomen/GI: Nausea and Vomiting
: Dysuria and Frequency
Physical Exam
-
General - well developed, well nourished, no acute distress
Chest - clear bilaterally
Abdomen - soft, non-tender, positive bowel sounds, no CVAT, no incisional pain or distention
Genitalia - normal
Rectal - normal
Skin - warm & dry with no rash
Neuro - AOx3, no motor deficits
Extremities - no clubbing, no cyanosis, no edema
Incision - clean, dry
Dressing - clean, dry, intact
Care Review
Data Reviewed
Discussed with: Hospitalist and Nursing
--- NOTE | 2024-02-15 11:26 | CM ---
CM met with p bedside
Pt resides with her spouse in a ranc[place] with ramp entrance for spouse's use
Pt is typically independent at baseline
She has a WW and SPC for use as needed, utilizes a cpap which is at home
Financially secure
Two adult daughters who are nurses and local and available for help as needed
Spouse plan for OR next week for ortho procedure at [facility]
Family will be assisting pt and spouse
PCP- [facility]
Rx- [facility]
Pt is OBS- [facility] completed
She noted plan for stent removal tomorrow and then home afterwards
Discharge Disposition- home, no needs anticipated
[2024-02-15 11:45] LABS: Glucose - Point of Care 138 mg/dl (70-99)
[2024-02-15] MEDS: NOVOLOG FLEXPEN-LOW RESISTANCE SC (11:47)
--- NOTE | 2024-02-15 11:47 | W.PN.HOSP.TC ---
Today's Communication/Plan
-
For OR tomorrow with urology for stent removal
Appreciate ID
Appreciate urology
Assessment / Plan
Assessment / Plan
Physical Exam
General: Not in acute distress
HEENT: Normocephalic
Respiratory: CTAB
Cardiac: S1/S2 and Regular Rhythm
GI: Soft, Non Tender, Non Distended, Normal Bowel Sounds
Musculoskeletal: No Cyanosis and No Edema
Skin: Macular rash with areas of coalescence
Neuro: AAO x 3. Nonfocal/grossly intact.
Psych: Calm
Assessment/Plan
#Rash back/ shoulders/head with pruritus chest , Abdomen, possibly a drug reaction
-New lotion (Honest Brand) was used prior to arrival but patient said she did not apply it to the area of the rash
-Patient was given Pepcid 20 mg in ER, Compazine, epinephrine 0.3 mg IM in ER
-Continue Medrol dose pack
-Continue Pepcid 20 mg daily, Singulair 10 mg daily, Benadryl as needed itching
-Infectious disease consultation appreciated
#Intractable nausea - IMPROVED
#Status post cystoscopy LEFt ureteroscopy/LEFT renal stone laser lithotripsy with LEFT ureteral stent placement 01/30/2024
Patient seen in ER for left 3 mm renal calculi 12/22/2023
-Urology consultation appreciated: for OR tomorrow for stent removal
-Macrobid 01/30 - 02/02/2024
-Continue Flomax
#Type 2 Diabetes Mellitus
-Glucose levels okay
-Accu-Cheks with SSI low
-Hold metformin
#Chronic back and leg pain
#History of back stimulator 2013, discectomy 2020
#History of palpitations
#Hypertension
-BP stable
-Continue Lisinopril 2.5 mg daily
#Hyperlipidemia
-Continue pravastatin 40 mg Saturday
#Gastroesophageal Reflux Disease
-Patient takes as needed Pepcid 20 mg daily
#Sleep apnea/CPAP
Uses nasal CPAP setting 4-5
#Anxiety history
-Trazodone 50 mg at bedtime
DVT Prophylaxis: Lovenox and SCDs
Code Status: Full code
Anticipated Discharge: 24 - 48 hours
Subjective/Interval History
-
Date of Service: February 15, 2024
Patient was seen and examined. She reported that her rash might have improved. She reported no new significant symptoms.
Objective Data
-
Labs:
Laboratory Results
02/15/24
06:33
WBC 6.6
Hgb 13.0
Hct 38.5
Plt Count 238
Vital Signs:
Vital Signs
Temp Pulse Resp BP Pulse Ox
98 F 91 21 139/68 96
02/15/24 07:45 02/15/24 08:28 02/15/24 07:45 02/15/24 08:28 02/15/24 08:00
I&O
02/14/24 02/15/24 02/16/24
06:59 06:59 06:59
Intake Total 480 / 480
Balance 480 / 480
--- NOTE | 2024-02-15 14:09 | W.PN.UPDATE ---
Addendum entered and electronically signed by Riley Castro MD 02/15/24 14:26:
Started Ciprofloxacin due to patient's Amoxicillin allergy.
Original Note:
Update Note
Progress Note Update
Dr. Santiago of urology requested that I start IV antibiotics for this patient today due to issue with patient's urinary stent which he said he will remove tomorrow. Will start Rocephin.
--- NOTE | 2024-02-15 15:02 | W.PN.ID1 ---
Date of Service
Date of Service: February 15, 2024
Today's Communication
- if stable to improved tomorrow could discharge with benadryl, famotidine and topical cortisone PRN
- preoperative ciprofloxacin was ordered by IM service, agree with 1 day of treatment for asymptomatic bacteruria prior to planned urologic procedure however dose was low for her renal function, I have adjusted it to 500 mg PO BID for 24 hours (high
bioavailability oral which is equivalent to IV)
Assessment / Plan
Possible Drug Rash
- no mucosal involvement
- agree with steroids, famotidine, benadryl
- if stable to improved tomorrow could discharge with benadryl, famotidine and topical cortisone PRN
Asymptomatic Bacturia
Amoxicillin - rash
- preoperative ciprofloxacin was ordered by IM service, agree with 1 day of treatment for asymptomatic bacteruria prior to planned urologic procedure however dose was low for her renal function, I have adjusted it to 500 mg PO BID for 24 hours (high
bioavailability oral which is equivalent to IV)
Chief Complaint
-: Other (rash)
Subjective / Review of Systems
afebrile, bp stable
no events overnight
rash stable in distribution, less red today
Vital Signs / Physical Exam
Vital Signs
Vital Signs
Temp Pulse Resp BP Pulse Ox
98 F 91 21 139/68 96
02/15/24 07:45 02/15/24 08:28 02/15/24 07:45 02/15/24 08:28 02/15/24 08:00
Physical Exam
Constitutional: No Acute Distress and Chronically Ill
Cardiovascular: Regular Rate and S1/S2; Negative Murmur or Rub
Pulmonary: Clear and Symmetric; Negative Wheezes or Rales
Gastrointestinal: Soft, Non Tender, Non Distended and Normal Bowel Sounds
Skin: Warm, Dry and Rash (stable in distribution, less red, no longer pruritic); Negative Jaundice
Objective Data
Lab Data
Lab Results
02/15/24 06:33
02/14/24 11:50
Lactic Acid Cancelled 02/14/24 15:15
Total Bilirubin 0.3 mg/dl (0.2-1.3) 02/14/24 11:50
AST 25 U/L (14-36) 02/14/24 11:50
ALT 22 U/L (0-35) 02/14/24 11:50
Alkaline Phosphatase 102 U/L (38-126) 02/14/24 11:50
Most recent labs reviewed.
Micro Results:
02/14/24 11:50 Blood Culture - Preliminary
Blood/Venous No Growth in 24 hours- Final report to follow
02/14/24 11:50 Blood Culture - Preliminary
Blood/Venous No Growth in 24 hours- Final report to follow
02/14/24 10:02 Urine Culture - Final
Urine
[2024-02-15 15:08] VITALS: BP 113/66
[2024-02-15 17:20] LABS: Glucose - Point of Care 170 mg/dl (70-99)
[2024-02-15] MEDS: LOVENOX 40 MG SC (17:25)
[2024-02-15 19:34] VITALS: BP 127/67
[2024-02-15] MEDS: CIPRO 500 MG PO (19:57)
[2024-02-15] MEDS: DESYREL 50 MG PO (21:16)
[2024-02-15 21:20] LABS: Glucose - Point of Care 128 mg/dl (70-99)
[2024-02-15 23:05] VITALS: BP 106/59
[2024-02-16 03:53] VITALS: BP 118/70
[2024-02-16 07:50] VITALS: BP 118/75
[2024-02-16] MEDS: ZESTRIL 2.5 MG PO (07:56)
[2024-02-16] MEDS: PEPCID 20 MG PO (07:56)
[2024-02-16] MEDS: SINGULAIR 10 MG PO (07:56)
[2024-02-16] MEDS: CIPRO 500 MG PO (07:56)
[2024-02-16] MEDS: MEDROL 16 MG PO (07:59)
[2024-02-16 08:09] LABS: Glucose - Point of Care 117 mg/dl (70-99)
[2024-02-16] MEDS: NOVOLOG FLEXPEN-LOW RESISTANCE SC ×2 (08:44→14:14)
--- NOTE | 2024-02-16 09:26 | W.SUR.POST ---
Surgical Immediate Post Op
Note
Pre Op Diagnosis:
stent pain possible infected stent
Post Op Diagnosis:
same
Procedure Performed:cystoscopy stent removal
flashner
Secondary Surgeons:
Anesthesia: viscus xylocaine
Estimated Blood Loss: 1
Fluids: nss
Drains/Shunts:0
Specimens/Cultures0:
Doppler/Duplex/Angio (Y/N):0
Complications: 0
Operative Findings: stnt removd
[2024-02-16 09:28] VITALS: BP 143/72; BP_SYST 18
[2024-02-16 09:59] LABS: % Basophils 0.4 % (0-2); % Eosinophils 1.1 % (0-6); % Immature Granulocytes 0.1 % (0-0.5); % Lymphocytes 17.6 % (20.5-51.1); % Monocytes 7.6 % (1.7-9.3); % Neutrophils 73.2 % (42.2-75.2); Absolute Eosinophils 0.1 10^3/uL (0-0.7); Absolute Lymphocytes 1.4 10^3/uL (1.2-3.4); Absolute Monocytes 0.6 10^3/uL (0.1-0.6); Absolute Neutrophils 5.8 10^3/uL (1.4-6.5); Hematocrit 39.8 % (37.0-47.0); Hemoglobin 13.3 g/dL (12.0-16.0); Mean Corp Hgb Conc. 33.4 g/dL (33.0-37.0); Mean Corpuscular Hgb 29.5 pg (27.0-31.0); Mean Corpuscular Volume 88.2 fL (81.0-99.0); Mean Platelet Volume 9.6 fL (7.4-10.4); Nucleated Red Blood Cells % 0 %; Platelet Count 229 10^3/uL (130-400); Red Blood Cell Count 4.51 10^6/uL (4.20-5.40); Red Cell Dist. Width 12.6 % (11.5-14.5)
[2024-02-16 10:16] LABS: Blood Urea Nitrogen 23 mg/dl (7-17); Calcium 10.2 mg/dl (8.4-10.2); Carbon Dioxide 26 mmol/L (22-30); Chloride 103 mmol/L (98-107); Glucose 124 mg/dl (70-99); Potassium 5.5 mmol/L (3.5-5.1); Sodium 142 mmol/L (135-145); eGFR > 60.00
[2024-02-16 11:42] VITALS: BP 115/62
--- NOTE | 2024-02-16 11:44 | W.PN.HOSP.TC ---
Today's Communication/Plan
-
Discharge today after BMP recheck to make sure potassium is not increasing further
Appreciate ID and urology
Assessment / Plan
Assessment / Plan
Physical Exam
General: Not in acute distress
HEENT: Normocephalic
Respiratory: CTAB
Cardiac: S1/S2 and Regular Rhythm
GI: Soft, Non Tender, Non Distended, Normal Bowel Sounds
Musculoskeletal: No Cyanosis and No Edema
Skin: Macular rash with areas of coalescence
Neuro: AAO x 3. Nonfocal/grossly intact.
Psych: Calm
Assessment/Plan
#Rash back/ shoulders/head with pruritus chest , Abdomen, possibly a drug reaction
-New lotion ([employer]) was used prior to arrival but patient said she did not apply it to the area of the rash
-Patient was given Pepcid 20 mg in ER, Compazine, epinephrine 0.3 mg IM in ER
-Complete course of Medrol dose pack
-Continue Pepcid 20 mg daily, Singulair 10 mg daily, Benadryl as needed itching as well as topical topical cortisone PRN
-Infectious disease consultation appreciated
#Intractable nausea - IMPROVED
#Status post cystoscopy LEFt ureteroscopy/LEFT renal stone laser lithotripsy with LEFT ureteral stent placement 01/30/2024 status post cystoscopy and stent removal on 02/16/24
Patient seen in ER for left 3 mm renal calculi 12/22/2023
-Urology consultation appreciated
-Macrobid 01/30 - 02/02/2024
-Discharge patient on three days of post-op Cipro 500 mg PO BID
-Continue Flomax
#Mild Hyperkalemia
-Recheck BMP
-Stop Lisinopril on discharge
-Start Amlodipine
-Check BMP tomorrow with PCP
#Type 2 Diabetes Mellitus
-Glucose levels okay
-Accu-Cheks with SSI low
-Check BMP tomorrow with your PCP and resume Metformin if your renal function is okay
#Chronic back and leg pain
#History of back stimulator 2013, discectomy 2020
#History of palpitations
#Hypertension
-BP stable
-Stop Lisinopril 2.5 mg daily due to hyperkalemia
-Will prescribe Amlodipine 2.5 mg daily instead
#Hyperlipidemia
-Continue pravastatin 40 mg Saturday
#Gastroesophageal Reflux Disease
-Patient takes as needed Pepcid 20 mg daily
#Sleep apnea/CPAP
Uses nasal CPAP setting 4-5
#Anxiety history
-Trazodone 50 mg at bedtime
DVT Prophylaxis: Lovenox and SCDs
Code Status: Full code
More than 30 minutes spent in discharge including
Final examination of the patient
Summarizing hospital stay
Instructions for continuing care to all relevant caregivers
Preparation of discharge records, prescriptions, and referral forms
Total time spent (in minutes): 38
Anticipated Discharge: Today
Subjective/Interval History
-
Date of Service: February 16, 2024
Patient was seen and examined. She reported feeling well post-op. No fevers or any other complaints. Rash is getting better.
Objective Data
-
Labs:
Laboratory Results
02/16/24 02/16/24
09:52 12:00
WBC 8.0
Hgb 13.3
Hct 39.8
Plt Count 229
Sodium 142 Pending
Potassium 5.5 H D Pending
Chloride 103 Pending
Carbon Dioxide 26 Pending
BUN 23 H Pending
Creatinine 0.8 Pending
Glucose 124 H Pending
Calcium 10.2 Pending
Vital Signs:
Vital Signs
Temp Pulse Resp BP Pulse Ox
98.3 F 82 18 143/72 98
02/16/24 09:28 02/16/24 09:28 02/16/24 09:28 02/16/24 09:28 02/16/24 09:28
I&O
02/15/24 02/16/24 02/17/24
06:59 06:59 06:59
Intake Total 480 / 480 760 / 760
Balance 480 / 480 760 / 760
[2024-02-16 12:22] LABS: Blood Urea Nitrogen 22 mg/dl (7-17); Calcium 9.9 mg/dl (8.4-10.2); Carbon Dioxide 24 mmol/L (22-30); Chloride 101 mmol/L (98-107); Glucose 227 mg/dl (70-99); Potassium 4.4 mmol/L (3.5-5.1); Sodium 141 mmol/L (135-145); eGFR > 60.00
[2024-02-16 12:48] LABS: Glucose - Point of Care 244 mg/dl (70-99)
--- NOTE | 2024-02-16 15:14 | W.DCSUMMARY ---
Discharge Summary
Discharge Data
Date of Admission: 02/14/24
Date of Discharge: 02/16/24
Total time spent discharging patient (in min): 38
-
Pending Results: Yes
Additional Pending Results:
Final blood culture results from hospitalization
Hospital Course
63 y/o female who presented with rash to her back and abdomen. The patient was started on Medrol Dose Rakesh, as well as as needed Benadryl, Singulair and Pepcid. Patient was also found to have intractable nausea after a recent urinary stent placement.
Infectious Disease and Urology were consulted. Patient did recently use a new lotion although she reported she did not apply it over the area where the rash started. Patient was started on Cipro in the setting of suspected bacteriuria in the setting
or anticipated urologic procedure, and on February 16, 2024, patient had a 'cystoscopy, removal of left double-J stents' (as per urology operative report) performed. Patient's rash continued to improve gradually. Patient was feeling better and was
stable for discharge.
Discharge Plan
-
Patient Disposition: Home (Routine Discharge)
Discharge Diagnosis/Procedures: #Rash back/ shoulders/head with pruritus chest, abdomen, possibly a drug reaction
#Intractable nausea - IMPROVED
#Status post cystoscopy LEFt ureteroscopy/LEFT renal stone laser lithotripsy with LEFT ureteral stent placement 01/30/2024 status post cystoscopy and stent removal on 02/16/24
#Mild Hyperkalemia - RESOLVED
#Type 2 Diabetes Mellitus
#Chronic back and leg pain
#History of back stimulator 2013, discectomy 2020
#History of palpitations
#Hypertension
#Hyperlipidemia
#Gastroesophageal Reflux Disease
#Sleep apnea/CPAP
#Anxiety history
Condition: Good
Diet: Low Fat, Low Cholesterol, 2 Gram Sodium and Diabetic, Carb Controlled
Activity: As tolerated
Blood Work: You need to have CBC and BMP checked with your PCP's office in 1 to 2 days
Activity Restrictions/Additional Instructions:
Your Lisinopril is on hold due to elevated potassium you had during your hospital stay. An alternative blood pressure medication called Amlodipine has been sent to your pharmacy. Discuss with your outpatient primary care physician this week whether
or not you should resume Lisinopril and stop Amlodipine.
Referrals:
Michael Santiago MD [Active] - (PLEASE CALL OFFICE DR FAJARDO TO CANCEL STENT REMOVAL BUR RESCHEDULE APT TO SEE DR FAJARDO TO DISCUSS STONE ANALYSIS AND PREVENTION SHOULD BE 3- 4 WEEKS )
Paradise Jefferson DO [Family Provider] - in less than 1 week (Hospital Follow-up)
Mireya Holt MD [Consulting Staff] - in one to two weeks (Hospital Follow-up. Rash.)
Additional Discharge Medication Instructions: Amlodipine, Ciprofloxacin, as needed Diphenhydramine, Famotidine, and Methylprednisolone are new medications.
Lisinopril and Metformin are on hold until you follow-up with your primary care physician this week.
Ondansetron stopped due to interaction with Ciprofloxacin antibiotic -- check with your primary care provider about if and when you can resume as needed Ondansetron when you need to.
Prescriptions:
New
ciprofloxacin HCl 500 mg Tablet
500 mg PO BID 3 Days Qty: 6 0RF
amlodipine 2.5 mg tablet
2.5 mg PO DAILY Qty: 14 1RF
methylprednisolone 4 mg Tablet
12 mg PO ONCE Qty: 3 0RF
Rx Instructions:
Take on 02/17/24
methylprednisolone 4 mg Tablet
8 mg PO ONCE Qty: 2 0RF
Rx Instructions:
Take on 02/18/24
methylprednisolone 4 mg Tablet
4 mg PO ONCE Qty: 1 0RF
Rx Instructions:
Take on 02/19/24
famotidine 20 mg Tablet
20 mg PO BID Qty: 20 0RF
diphenhydramine HCl 50 mg Capsule
50 mg PO Q6HPRN PRN (Reason: pruritis) Qty: 30 0RF
hydrocortisone butyrate 0.1 % cream
1 applic topical BID PRN (Reason: rash) Qty: 15 0RF
Continued
trazodone 50 mg Tablet
50 mg PO HS
pravastatin 40 mg Tablet
40 mg PO MOWEFR
montelukast [Singulair] 10 mg Tablet
10 mg PO DAILY
phenazopyridine 200 mg Tablet
200 mg PO TIDPRN PRN (Reason: painful urination)
calcium carbonate-vitamin D3 600 mg-5 mcg (200 unit) Tablet
1 tab PO DAILY
coenzyme Q10 [CoQ-10] 100 mg Capsule
100 mg PO DAILY
Held
metformin 500 mg Tablet
500 mg PO BID
Hold Instructions: Resume on 02/19/24. Discuss with your primary care physician when to resume this medication.
lisinopril 2.5 mg Tablet
2.5 mg PO DAILY
Hold Instructions: Resume on 04/06/24. Do not resume this medication until and unless you are approved to resume this medication by your outpatient physician.
Discontinued
ondansetron HCl [Zofran] 4 mg Tablet
4 mg PO Q8HPRN PRN (Reason: nausea)
Discharge Orders:
Discharge Patient (As Directed); Ordered 02/16/24
Ordered By: Riley Castro
Discharge Date and Time
Discharge Date/Time: 02/16/24 15:40
Print Language: SCOTTISH
== END 2024-02-16 15:40 | disposition home or self-care (01) ==
LOC: 3 WEST ACU 13:42
PROVIDERS: Clinical Nurse Specialist Family Health; Registered Nurse; ADMITTING PHYSICIAN Internal Medicine; ATTENDING PHYSICIAN Hospitalist; CONSULT PHYSICIAN Specialist; CONSULT PHYSICIAN Student in an Organized Health Care Education/Training Program; EMERGENCY PHYSICIAN Emergency Medicine; FAMILY PHYSICIAN Internal Medicine
DX: N20.2 Calculus of kidney with calculus of ureter (principal); R21 Rash and other nonspecific skin eruption; G47.33 Obstructive sleep apnea (adult) (pediatric); K21.9 Gastro-esophageal reflux disease without esophagitis; I10 Essential (primary) hypertension; E11.9 Type 2 diabetes mellitus without complications; E87.5 Hyperkalemia; E78.00 Pure hypercholesterolemia, unspecified; G89.29 Other chronic pain; L29.9 Pruritus, unspecified; F41.9 Anxiety disorder, unspecified; Z90.49 Acquired absence of other specified parts of digestive tract; Z87.442 Personal history of urinary calculi; Z80.1 Family history of malignant neoplasm of trachea, bronchus and lung; Z82.49 Family history of ischemic heart disease and other diseases of the circulatory system; Z82.3 Family history of stroke; Z88.5 Allergy status to narcotic agent; Z88.0 Allergy status to penicillin; Z88.8 Allergy status to other drugs, medicaments and biological substances; Z79.84 Long term (current) use of oral hypoglycemic drugs; Z11.52 Encounter for screening for COVID-19
CPT/HCPCS: 52356; 80048; 80053; 81003; 81015; 82962; 83036; 83605; 85025; 87040; 87086; 87811; 93005; 94660; 96361; 96372; 96374; 96375; 99285; G0378

== ENCOUNTER → 2024-08-13 13:56 | Outpatient (REF) | payer OTHER, SELFPAY | LOC: HWRAD 13:56 | PROVIDERS: ATTENDING PHYSICIAN Urology; FAMILY PHYSICIAN Internal Medicine | DX: N20.0 Calculus of kidney (principal) | CPT/HCPCS: 76775 ==

== ENCOUNTER 2024-10-21 15:10 | Emergency (ER) | payer OTHER, SELFPAY ==
[2024-10-21 15:17] VITALS: BP 164/82
[2024-10-21 15:47] LABS: % Basophils 0.2 % (0-2); % Eosinophils 0.2 % (0-6); % Immature Granulocytes 0.2 % (0-0.5); % Lymphocytes 22.1 % (20.5-51.1); % Monocytes 5.7 % (1.7-9.3); % Neutrophils 71.6 % (42.2-75.2); Absolute Lymphocytes 1.8 10^3/uL (1.2-3.4); Absolute Monocytes 0.5 10^3/uL (0.1-0.6); Absolute Neutrophils 5.7 10^3/uL (1.4-6.5); Hematocrit 38.3 % (37.0-47.0); Hemoglobin 12.9 g/dL (12.0-16.0); Mean Corp Hgb Conc. 33.7 g/dL (33.0-37.0); Mean Corpuscular Hgb 28.5 pg (27.0-31.0); Mean Corpuscular Volume 84.7 fL (81.0-99.0); Mean Platelet Volume 10.1 fL (7.4-10.4); Nucleated Red Blood Cells % 0 %; Platelet Count 210 10^3/uL (130-400); Red Blood Cell Count 4.52 10^6/uL (4.20-5.40); Red Cell Dist. Width 13.4 % (11.5-14.5)
[2024-10-21 15:55] LABS: ALT (SGPT) 35 U/L (0-35); AST (SGOT) 25 U/L (14-36); Albumin 4.5 g/dl (3.5-5.0); Alkaline Phosphatase 82 U/L (38-126); Blood Urea Nitrogen 11 mg/dl (7-17); Calcium 9.9 mg/dl (8.4-10.2); Carbon Dioxide 29 mmol/L (22-30); Chloride 108 mmol/L (98-107); Glucose 143 mg/dl (70-99); Lipase 381 U/L (23-300); Potassium 4.2 mmol/L (3.5-5.1); Sodium 143 mmol/L (135-145); Total Bilirubin 0.4 mg/dl (0.2-1.3); Total Protein 7.5 g/dl (6.3-8.2); eGFR > 60.00
[2024-10-21 16:07] LABS: Troponin I < 0.012 ng/ml
--- NOTE | 2024-10-21 16:33 | ED.GENMED ---
History of Present Illness
General
Chief Complaint: Abdominal Pain
Source: patient
Exam Limitations: none
Time Seen by Provider: 10/21/24 16:15
Nursing documentation reviewed up to this point in time: agreed with
History of Present Illness
History of Present Illness:
64-year-old female hypertension type 2 diabetes chronic pain syndrome lumbar disc disease status post multiple surgeries gallbladder appendix kidney stone presents with a few weeks to months of left upper and left flank pain that she thought was
related to prior kidney stone surgery she saw her urologist told that it was not that, pain worse in the past day or so generally worse with eating she has lost about 4 pounds she had nausea today pain saw her PCP referred to the ER for possible
pancreatitis versus other she no longer has her gallbladder, does have high lipids, she did start Protonix few days ago without much relief, saw her PCP today referred to the ER
Past History
Past History
ED Past Medical History: GERD, HTN, Hypercholesterolemia and NIDDM
ED Past Surgical History: Appendectomy, Cholecystectomy, Gynecological (hysterectomy), Orthopedic and Urological (stent R ureter 01/31/24)
Social History
Tobacco: Non-smoker
Alcohol: None
Personal:
Living: with family
Employment: Not employed
Review of Systems
Review of Systems
All Other Systems: Not applicable
Constitutional: Reports weight loss; Denies fever or fatigue
EENT: Reports no symptoms
Respiratory: Reports no symptoms
Cardiac: Denies chest pain
ABD/GI: Reports abdominal pain, nausea and other (Soft stool)
Phy Exam
Physical Exam
Physical Exam:
Physical Exam
General: no apparent distress, not acutely ill
Neck: No jaundice
Heart: s1/s2 regular rate and rhythm, no murmur. equal radial pulses.
Lungs: no acute respiratory distress. clear bilaterally
Abdomen mild tenderness in the left upper abdomen
Neuro: alert and oriented. no focal neurological deficits
Skin: no rash
Psychiatric: well kept. interactive and cooperative
Extremities: no edema.
Course
Orders/Labs/Results
Orders:
Orders
10/21/24 15:21
Electrocardiogram (*1) Urgent
Reason for Study: Abdominal Pain
EKG- Treatment ONCE
10/21/24 15:34
Complete Blood Count/With Diff Urgent
Comprehensive Metabolic Panel Urgent
Lipase Urgent
Troponin I Urgent
10/21/24 16:15
CT Abd/pelvis W Iv Cont Urgent
Comment:
Reason For Exam: pain lipase up
10/21/24 16:25
0.9% Sodium Chloride 1000 ml [Nss] 1,000 ml IV BOLUS
Diphenhydramine [Benadryl] 25 mg IV NOW STA
Morphine Sulfate 4 mg IV NOW STA
Pantoprazole [Protonix IV] 40 mg IV NOW STA
Abnormal Lab Results
10/21/24
15:34
Chloride 108 H mmol/L
(98-107)
Glucose 143 H mg/dl
(70-99)
Lipase 381 H U/L
(23-300)
10/21/24 15:34
10/21/24 15:34
Vital Signs
Initial and Last Documented VS:
Initial Vital Signs
Temp Pulse Resp BP Pulse Ox
98.9 F 60 20 164/82 100
10/21/24 15:17 10/21/24 15:17 10/21/24 15:17 10/21/24 15:17 10/21/24 15:17
Last Documented Vital Signs
Temp Pulse Resp BP Pulse Ox
98.9 F 60 18 164/82 100
10/21/24 15:17 10/21/24 15:17 10/21/24 16:25 10/21/24 15:17 10/21/24 15:17
MDM/Problems Addressed
Differential Diagnosis Includes:
Pancreatitis reflux nonspecific abdominal pain malignancy
MDM/Problems Addressed:
Postprandial abdominal
Chronic conditions affecting care: DM and Previous abdomnial surgery
Acute Exacerbation and/or Progression of Chronic Illness: DM and Previous abdomnial surgery
*Radiology
Radiology exam reviewed: radiology read reviewed
*Pulse Oximetry
Patient hypoxic: no
*EKG
Interpreted by ED Provider?: Yes
Interpretation: normal
Comparison EKG: no comparison EKG present
Heart Rate: 78
Rate: normal
Rhythm: sinus
Ischemia: no ischemia
*Plasterer Maintenance Interpretation
Rate: normal
Interpretation: normal
Heart Rate: 78
Rhythm: sinus
*Critical Care Note
Total Time (30-74mins, 75-104mins- exclusive of procedures): Not Applicable
Update Note
Update Note:
5:[address] PM update labs and CT noted, patient looks comfortable abdomen is soft and nontender, will see if she can eat
615 RN reports she is feeling better after eating, message sent to GI office to try to arrange follow-up
ED Attending Note
-
Portions of this chart may have been created with voice recognition software.� Occasional wrong word or��sound alike� substitutions may have occurred due to the inherent limitations of voice recognition software.
Discharge Plan
Departure
Patient Disposition: Home (Routine Discharge)
Date of Disposition: 10/21/24
Time of Disposition: 18:13
Patient with high blood pressure during this ER visit?: No
Condition: Good
Discharge Problem:
Abdominal pain
Instructions: Acid Reflux and GERD in Adults (DC), Nausea and Vomiting, Adult (DC), Gastritis (DC)
Prescriptions:
New
promethazine 25 mg tablet
25 mg PO QID PRN (Reason: nausea and vomiting) Qty: 20 0RF
pantoprazole [Protonix] 40 mg tablet,delayed release (DR/EC)
40 mg PO DAILY Qty: 90 0RF
No Action
metformin 500 mg Tablet
500 mg PO BID
trazodone 50 mg Tablet
50 mg PO HS
pravastatin 40 mg Tablet
40 mg PO MOWEFR
montelukast [Singulair] 10 mg Tablet
10 mg PO DAILY
lisinopril 2.5 mg Tablet
2.5 mg PO DAILY
phenazopyridine 200 mg Tablet
200 mg PO TIDPRN PRN (Reason: painful urination)
calcium carbonate-vitamin D3 600 mg-5 mcg (200 unit) Tablet
1 tab PO DAILY
coenzyme Q10 [CoQ-10] 100 mg Capsule
100 mg PO DAILY
ciprofloxacin HCl 500 mg Tablet
500 mg PO BID 3 Days Qty: 6 0RF
amlodipine 2.5 mg tablet
2.5 mg PO DAILY Qty: 14 1RF
methylprednisolone 4 mg Tablet
12 mg PO ONCE Qty: 3 0RF
Rx Instructions:
Take on 02/17/24
methylprednisolone 4 mg Tablet
8 mg PO ONCE Qty: 2 0RF
Rx Instructions:
Take on 02/18/24
methylprednisolone 4 mg Tablet
4 mg PO ONCE Qty: 1 0RF
Rx Instructions:
Take on 02/19/24
famotidine 20 mg Tablet
20 mg PO BID Qty: 20 0RF
diphenhydramine HCl 50 mg Capsule
50 mg PO Q6HPRN PRN (Reason: pruritis) Qty: 30 0RF
hydrocortisone butyrate 0.1 % cream
1 applic topical BID PRN (Reason: rash) Qty: 15 0RF
Referrals:
Paradise Jefferson DO [Family Provider] -
Saundra Davis MD [Active] - Next open appointment
Activity Restrictions/Additional Instructions:
[place] diet nothing fatty or spicy
Follow-up with your primary care provider and gastroenterology
Interventions
Interventions:
*Risk Screen - Suicide Last Done: 10/21/24 15:17
CR-Avifdl-Leupaawrvs Assessment Last Done: 10/21/24 16:30
Discharge Date and Time
Print Language: TAIWANESE
[2024-10-21] MEDS: NSS 1000 IV (16:53)
[2024-10-21] MEDS: PROTONIX IV 40 MG IV (16:54)
[2024-10-21] MEDS: BENADRYL 25 MG IV (16:56)
[2024-10-21] MEDS: MORPHINE SULFATE 4 MG IV (16:56)
[2024-10-21 18:20] VITALS: BP 136/59
== END 2024-10-21 18:27 | disposition home or self-care (01) ==
LOC: EMR 15:10
PROVIDERS: Emergency Medicine; EMERGENCY PHYSICIAN Emergency Medicine; FAMILY PHYSICIAN Internal Medicine
DX: R10.9 Unspecified abdominal pain (principal); E11.9 Type 2 diabetes mellitus without complications; E78.00 Pure hypercholesterolemia, unspecified; G89.4 Chronic pain syndrome; I10 Essential (primary) hypertension; Z87.442 Personal history of urinary calculi; Z90.49 Acquired absence of other specified parts of digestive tract; Z90.710 Acquired absence of both cervix and uterus
CPT/HCPCS: 99284; 96374; 96375; 96361; 74177; 80053; 83690; 84484; 85025; 93005; Q9967

== ENCOUNTER → 2025-02-22 08:13 | Outpatient (REF) | payer OTHER, SELFPAY | LOC: RAD 08:13 | PROVIDERS: ATTENDING PHYSICIAN Urology; FAMILY PHYSICIAN Internal Medicine | DX: N20.0 Calculus of kidney (principal) | CPT/HCPCS: 76775 ==